=== PATIENT | female | born 1980 | race Caucasian/White ===

== ENCOUNTER 2016-10-13 08:15 | Outpatient (CLI) | payer OTHER | END 2016-10-13 23:59 | DX: Z00.00 Encounter for general adult medical examination without abnormal findings (principal); B35.1 Tinea unguium; E28.2 Polycystic ovarian syndrome; R00.2 Palpitations ==

== ENCOUNTER 2016-11-19 08:19 | Outpatient (CLI) | payer OTHER | END 2016-11-19 08:20 | disposition home or self-care (01) | DX: R00.2 Palpitations (principal); I51.7 Cardiomegaly ==

== ENCOUNTER 2017-01-02 07:18 | Emergency (ER) | payer OTHER ==
[2017-01-02 07:32] VITALS: BP 134/88
--- NOTE | 2017-01-02 07:48 | ED Physician Documentation ---
History of Present Illness - Stated complaint Stated Complaint: HEEL PX - Chief complaint Chief Complaint: Ext Problem - Additonal information Additional information: hx form pt 36 f [facility] staff chronic achilles pain been to PT has ortho appt Monday acute exac of pain, burning sebere at base of achilles L > R and some swelling below medial mall and mid foot would like xrays and a cam walker took her own NSAID already Review of Systems Musculoskeletal: reports: Pain with weight bearing PD PAST MEDICAL HISTORY - Past Medical History Past Medical History: Yes Other Past Medical History: PCOS - Past Surgical History Past Surgical History: Yes General: Cholecystectomy - Present Medications Home Medications: Ambulatory Orders Medication Instructions Recorded Confirmed Metformin HCl 1,000 mg PO DAILY 01/02/17 01/02/17 Paroxetine HCl [Paxil] 25 mg PO DAILY 01/02/17 01/02/17 - Allergies Allergies/Adverse Reactions: Allergies Allergy/AdvReac Type Severity Reaction Status Date / Time Sulfa (Sulfonamide Allergy Unknown Verified 01/02/17 07:31 Antibiotics) - Social History Does the pt smoke?: No Smoking Status: Never smoker Does the pt drink ETOH?: Yes Does the pt have substance abuse?: No - POLST Patient has POLST: No PD ED PE NORMAL - Vitals Vital signs reviewed: Yes - Extremities Extremities: Other (L ankle: _ small effusion, no erythema, TTP achilles primarily abse, no defecet, limited ROM cannot dorsiflex to 90 degress, MSV intact, R ankle no effusion, also TTP acilles, alos limited ROM but better than L MSV intact) Results - Vitals Vitals: Vital Signs - 24 hr 01/02/17 07:27 Temperature 35.5 C L Heart Rate 84 Respiratory 17 Rate Blood Pressure 134/88 H O2 Saturation 98 Oxygen O2 Source Room air - Rads (name of study) ankles Radiology: See rad report (large sandro plantar and posterior calcaneal enthesophytes, no acute fx, 8 mm opssific denity dorsal l talonavicular could be ossicle or remote avulsion or avulsed osteophyte) Departure - Departure Disposition: 01 Home, Self Care Clinical Impression: Bone spur of ankle Condition: Good Follow-Up: [facility] [Provider Group] Comments: The xrays show very large bone spurs bilaterally. On the left there may be a small avulsion but it is difficult to determine from the xrays how old that is. Recommend wearing the boot as needed - but take it off when at rest to allow better circulation and prevent a DVT Follow up with orthopedics Monday as scheduled - the xrays will be available for the ortho office to review And please follow up with your PMD about your blood pressure - it was high today
--- NOTE | 2017-01-02 08:26 | XRAY Preliminary Report ---
Exam: XR Ankle 3 View BILAT IMPRESSION: 1. Large bilateral plantar and posterior calcaneal enthesophytes. 2. No convincing acute fracture. 3. 8 mm ossific density along dorsal aspect of left talonavicular joint could be from secondary ossic le or remote avulsion or avulsed osteophyte. [facility] SITE ID: [id number]
--- NOTE | 2017-01-02 08:29 | XRAY Report ---
EXAMS: 1. Right Ankle Radiography 2. Left Ankle Radiography EXAM DATE: 01/02/2017 07:58 AM. CLINICAL HISTORY: Acute exacerbation of chronic pain. No known injury. Achilles tendinitis for 3 claire hs. COMPARISON: None. TECHNIQUE: 3 views each ankle. FINDINGS: Right Ankle: Bones: Normal. No fractures or bone lesions. Joints: Normal. No effusion. No subluxations. The ankle mortise is normally aligned. Soft Tissues: Large plantar and posterior calcaneal enthesophytes. Left Ankle: Bones: No convincing acute fracture. 8 mm ossific density along dorsal aspect of talonavicular joint could be from secondary ossicle or remote avulsion or avulsed osteophyte. Joints: Normal. No effusion. No subluxations. The ankle mortise is normally aligned. Soft Tissues: Large plantar and posterior calcaneal spurs. IMPRESSION: 1. Large bilateral plantar and posterior calcaneal enthesophytes. 2. No convincing acute fracture. 3. 8 mm ossific density along dorsal aspect of left talonavicular joint could be from secondary ossic le or remote avulsion or avulsed osteophyte. [facility] Referring Provider Line: [phone] SITE ID: [id number]
== END 2017-01-02 09:10 | disposition home or self-care (01) ==
LOC: ED 07:18
DX: M77.9 Enthesopathy, unspecified (principal)
CPT/HCPCS: 99283

== ENCOUNTER 2017-04-07 08:00 | Outpatient (CLI) | payer OTHER | END 2017-04-07 08:01 | disposition home or self-care (01) | LOC: LAB.R 08:00 | PROVIDERS: ATTEND Family Medicine | DX: N39.0 Urinary tract infection, site not specified (principal) | CPT/HCPCS: 87086 ==

== ENCOUNTER 2017-04-07 16:35 | Outpatient (CLI) | payer OTHER ==
--- NOTE | 2017-04-08 16:21 | XRAY Preliminary Report ---
Exam: XR Shoulder 2 View LT IMPRESSION: Normal left shoulder radiography. [facility] SITE ID: [id number]
--- NOTE | 2017-04-08 16:24 | XRAY Report ---
EXAM: LEFT SHOULDER RADIOGRAPHY 2 VIEWS EXAM DATE: 04/07/2017. CLINICAL HISTORY: Left cervical radiculopathy. Left shoulder mass. COMPARISON: None. TECHNIQUE: AP and scapular Y views. FINDINGS: Bones: Normal. No fracture or bone lesion. Joints: The glenohumeral and acromioclavicular joints appear normal. Soft tissues: No calcifications. The visualized left lung is clear. IMPRESSION: Normal left shoulder radiography. [facility] Referring Provider Line: [phone] SITE ID: [id number]
--- NOTE | 2017-04-09 09:09 | XRAY Preliminary Report ---
Exam: XR Cervical Spine 2 View IMPRESSION: Loss of the normal cervical lordosis is likely positional. Minimal early degenerative rickey nges. [facility] SITE ID: [id number]
--- NOTE | 2017-04-09 09:12 | XRAY Report ---
EXAM: CERVICAL SPINE RADIOGRAPHY EXAM DATE: 04/07/2017 04:44 PM. CLINICAL HISTORY: CERVICAL RADICULOPATHY LEFT,SHOULDER MASS. COMPARISONS: None. TECHNIQUE: 3 views. FINDINGS: Alignment: Loss of the normal cervical lordosis is likely positional in nature. Scoliosis. Bones: The cervical vertebral bodies and posterior elements are well visualized from the skull base t hrough C6-C7. No fractures or bone lesions. Disks: Minimal early endplate degenerative changes. Facets: No degenerative disease. Soft Tissues: Normal. No prevertebral soft tissue swelling. The visualized lung apices are clear. IMPRESSION: Loss of the normal cervical lordosis is likely positional. Minimal early degenerative rickey nges. [facility] Referring Provider Line: [phone] SITE ID: [id number]
== END 2017-04-07 16:36 | disposition home or self-care (01) ==
LOC: DI 16:35
PROVIDERS: ATTEND Family Medicine
DX: M50.10 Cervical disc disorder with radiculopathy, unspecified cervical region (principal); M41.9 Scoliosis, unspecified; R22.2 Localized swelling, mass and lump, trunk
CPT/HCPCS: 72040

== ENCOUNTER 2017-04-26 09:23 | Outpatient (CLI) | payer OTHER | END 2017-04-26 09:24 | disposition home or self-care (01) | LOC: DI 09:23 | PROVIDERS: ATTEND Family Medicine | DX: Z53.9 Procedure and treatment not carried out, unspecified reason (principal) ==

== ENCOUNTER 2017-06-24 10:54 | Emergency (ER) | payer OTHER ==
[2017-06-24 11:16] VITALS: BP 132/86
--- NOTE | 2017-06-24 11:39 | XRAY Preliminary Report ---
Exam: XR ANKLE 3 VIEW RT IMPRESSION: 1. No acute osseous abnormality. 2. Soft tissue swelling. [facility] SITE ID: [id number]
--- NOTE | 2017-06-24 11:42 | XRAY Report ---
EXAM: RIGHT ANKLE RADIOGRAPHY EXAM DATE: 06/24/2017 11:30 AM. CLINICAL HISTORY: Right ankle, heel pain. COMPARISON: None. TECHNIQUE: 3 views. FINDINGS: Bones: Normal. No fractures or bone lesions. Moderate plantar calcaneal spur and Achilles enthesophyt e. Joints: Mild mortise joint DJD. No effusion. No subluxations. The ankle mortise is normally aligned. Soft Tissues: Mild soft tissue swelling about the ankle. IMPRESSION: 1. No acute osseous abnormality. 2. Soft tissue swelling. [facility] Referring Provider Line: [phone] SITE ID: [id number]
--- NOTE | 2017-06-24 12:34 | ED Physician Documentation ---
History of Present Illness - Stated complaint Stated Complaint: R FOOT INJ - Chief complaint Chief Complaint: Ext Problem - History obtained from History obtained from: Patient (pt here for evaluation of right ankle pain. pt states that yesterday she stepped on her right foot and felt a "pop" on the inside portion of the ankle. Did not twist her ankle. staes that since then she has had pain. No swelling, no skin changes. has tried RICE treatment w/o much help.) Review of Systems Skin: denies: Rash, Lesions Musculoskeletal: reports: Extremity pain, Joint pain, Joint swelling, Pain with weight bearing. denies: Back pain Neurologic: denies: Focal weakness, Numbness PD PAST MEDICAL HISTORY - Past Surgical History Past Surgical History: Yes General: Cholecystectomy - Present Medications Home Medications: Ambulatory Orders Medication Instructions Recorded Confirmed Metformin HCl 1,000 mg PO DAILY 01/02/17 06/24/17 Paroxetine HCl [Paxil] 25 mg PO DAILY 01/02/17 06/24/17 - Allergies Allergies/Adverse Reactions: Allergies Allergy/AdvReac Type Severity Reaction Status Date / Time Sulfa (Sulfonamide Allergy Unknown Verified 06/24/17 11:16 Antibiotics) - Social History Does the pt smoke?: No Smoking Status: Former smoker Does the pt drink ETOH?: Yes Does the pt have substance abuse?: No - Immunizations Immunizations are current?: Yes - POLST Patient has POLST: No PD ED PE NORMAL - Vitals Vital signs reviewed: Yes - General General: Alert and oriented X 3 - HEENT HEENT: Atraumatic - Cardiac Cardiac: Strong equal pulses (DP) - Respiratory Respiratory: No respiratory distress - Derm Derm: Normal color, Warm and dry, No rash - Extremities Extremities: No deformity, No calf tenderness / cord. No: No tenderness to palpate (TTP over the inferior portion of the medial mal of the right ankle. ) , Normal ROM s pain (decreased ROM of the right ankle) - Neuro Neuro: Alert and oriented X 3 - Psych Psych: Normal mood, Normal affect Results - Vitals Vitals: Vital Signs - 24 hr 06/24/17 11:10 Temperature 35.8 C L Heart Rate 84 Respiratory 18 Rate Blood Pressure 132/86 H O2 Saturation 98 Oxygen O2 Source Room air - Rads (name of study) ankle Radiology: Final report received (1. No acute osseous abnormality. 2. Soft tissue swelling. ) PD MEDICAL DECISION MAKING - ED course Complexity details: d/w patient ED course: no fracture on x-ray. TTP over the medial mal. suspect ligament or other soft tissue injury. no reports of instability. provided hard sole shoe and crutches for treatment. Will f/U with PCM for further evaluation. Departure - Departure Disposition: 01 Home, Self Care Clinical Impression: Ankle sprain Condition: Good Instructions: ED Jamalain ERASTO Lopez Follow-Up: Ana Balderrama DO [Primary Care Provider] - Comments: Keep your leg/foot elevated and ICE as needed. Use the shoe and crutches for comfort. follow up with your primary care provider. Return to the ER for any new or worsening symptoms
== END 2017-06-24 13:00 | disposition home or self-care (01) ==
LOC: ED 10:54
DX: S93.401A Sprain of unspecified ligament of right ankle, initial encounter (principal); X50.0XXA Overexertion from strenuous movement or load, initial encounter; Z87.891 Personal history of nicotine dependence
CPT/HCPCS: 99283

== ENCOUNTER 2017-06-28 11:30 | Outpatient (CLI) | payer OTHER ==
[2017-06-28 19:10] LABS: HCT - HEMATOCRIT 40.8 % (37.0-47.0); HGB - HEMOGLOBIN 13.6 g/dL (12.0-16.0); MEAN CORPUSCULAR HEMOGLOBIN 30.9 pg (27.0-31.0); MEAN CORPUSCULAR HGB CONC 33.4 g/dL (32.0-36.0); MEAN CORPUSCULAR VOLUME 92.5 fL (81.0-99.0); MEAN PLATELET VOLUME 9.7 fL (7.9-10.8); RED BLOOD COUNT 4.41 10^6/uL (4.20-5.40); RED CELL DISTRIBUTION WIDTH 14.8 % (12.0-15.0); WHITE BLOOD COUNT 8.6 x10^3/uL (4.8-10.8)
[2017-06-28 19:45] LABS: URIC ACID 5.9 mg/dL (2.6-7.2)
== END 2017-06-28 11:31 ==
LOC: LAB.WCP 11:30
PROVIDERS: ATTEND Family Medicine
DX: M25.50 Pain in unspecified joint (principal)
CPT/HCPCS: 36415; 84550; 85651; 86038; 86140; 86200; 86430